=== PATIENT | male | born 1950 | race Caucasian/White ===

== ENCOUNTER 2018-03-04 23:34 | Emergency (ER) | payer BC ==
[2018-03-05] MEDS ORDERED: HYDROmorphone 1 MG/ML Syringe ONE ×2 (00:27→00:53)
[2018-03-05 00:30] LABS: ANION GAP 12.4 mmol/L (5-15)
[2018-03-05] MEDS: Sodium Chloride 0.9% 5 ML Syringe FLUSH PRN ×3 (00:30→02:35)
[2018-03-05] MEDS ORDERED: Iopamidol 612 MG/ML 75 ML Bottle IV ONE (00:35)
[2018-03-05] MEDS ORDERED: Sodium Chloride 0.9% 50 ML IV SCH (00:45)
--- NOTE | 2018-03-05 00:45 | EDM.PDOC ---
ED HPI GENERAL MEDICAL PROBLEM - General Chief Complaint: Abdominal Pain Stated Complaint: SVERE LOWER ABD PAIN Time Seen by Provider: 03/04/18 23:50 Source of Information: Reports: Patient, Family () History Limitations: Reports: No Limitations - History of Present Illness INITIAL COMMENTS - FREE TEXT/NARRATIVE: 67-year-old male presents emergency room with complaints of severe lower abdominal pain. Symptoms began abruptly at approximately 1 hour prior to arrival around 11:00. Pain became very severe in nature. He noticed it across his right lower quadrant as well as tenderness in the left lower quadrant. Reports the pain was sharp and intense. Rating the pain an 8 out of 10. He denies any nausea vomiting. No diarrhea. No constipation. He denies any hematuria or dysuria. He's not complaining of any shortness of breath chest pain , diaphoresis. He notices the pain is severe with any pressure on his abdomen. Onset: Today Onset Date: 03/05/18 Onset Time: 23:00 Duration: Minutes:, Constant Location: Reports: Abdomen Quality: Reports: Stabbing Severity: Severe Improves with: Reports: None Worsens with: Reports: Movement Associated Symptoms: Reports: No Other Symptoms. Denies: Chest Pain, Diaphoresis, Fever/Chills, Nausea/Vomiting - Related Data Allergies Allergy/AdvReac Type Severity Reaction Status Date / Time cephalexin Allergy Hives Verified 03/04/18 23:40 Home Meds: Home Meds Clopidogrel [Plavix] 75 mg PO DAILY 03/04/18 [History] Esomeprazole [NexIUM] 40 mg PO DAILY 03/04/18 [History] atorvaSTATin Calcium [Lipitor] 20 mg PO BEDTIME 03/04/18 [History] Aspirin [Halfprin] 81 mg PO DAILY 03/05/18 [History] Cholecalciferol (Vitamin D3) [Vitamin D3] 1,000 unit PO DAILY 03/05/18 [History] Gluc 2KCl/Chondr/Charlette Hy/Hy Ac [Glucosamine & Chondroitin Cap] 1 cap PO DAILY [History] Turmeric Root Extract [Turmeric] 500 mg PO DAILY 03/05/18 [History] ED ROS GENERAL - Review of Systems Review Of Systems: See Below Constitutional: Denies: Fever, Chills, Diaphoresis HEENT: Denies: Vertigo Respiratory: Denies: Shortness of Breath Cardiovascular: Denies: Chest Pain, Lightheadedness Endocrine: Reports: No Symptoms GI/Abdominal: Reports: Abdominal Pain. Denies: Bloody Stool, Constipation, Diarrhea, Nausea, Vomiting : Denies: Dysuria, Flank Pain, Hematuria, Incontinence Musculoskeletal: Denies: Back Pain Skin: Reports: Change in Color. Denies: Cyanosis, Diaphoresis Psychiatric: Reports: No Symptoms Hematologic/Lymphatic: Reports: Easy Bleeding (plavix) Immunologic: Reports: No Symptoms ED EXAM, GI/ABD - Physical Exam Exam: See Below Exam Limited By: No Limitations General Appearance: Alert, Moderate Distress, Obese (abdominal) Ears: Hearing Grossly Normal Nose: Normal Inspection Throat/Mouth: Normal Inspection, Normal Oropharynx, Normal Voice, No Airway Compromise Neck: Normal Inspection, Supple Respiratory/Chest: No Respiratory Distress, Lungs Clear Cardiovascular: Regular Rate, Rhythm GI/Abdominal Exam: Normal Bowel Sounds, No Distention, Rebound, Tender (RLQ). No: Hernia (Male) Exam: No Hernia. No: Scrotum Tenderness (L), Scrotum Tenderness (R) Back Exam: Normal Inspection Extremities: Normal Inspection, Normal Range of Motion Neurological: Alert, No Motor/Sensory Deficits Psychiatric: Normal Affect, Normal Mood Skin Exam: Warm, Dry, Intact, Normal Color, No Rash Course - Vital Signs Last Recorded V/S: Last Vital Signs Temp 100 F 03/05/18 01:54 Pulse 86 03/05/18 01:54 Resp 20 03/05/18 01:54 BP 150/86 H 03/05/18 01:54 Pulse Ox 94 L 03/05/18 01:54 - Orders/Labs/Meds Orders: Active Orders 24 hr Category Date Time Status Abdomen Pelvis w Cont [CT] Stat Exams 03/05/18 00:00 Taken URINALYSIS W/MICROSCOPIC [UA W/MICROSCOPIC] [URIN] Stat Lab 03/05/18 00:15 Ordered Sodium Chloride 0.9% [Normal Saline] 1,000 ml Med 03/05/18 02:30 Active IV ASDIRECTED Sodium Chloride 0.9% [Normal Saline] 50 ml Med 03/05/18 00:45 Active IV ASDIRECTED Sodium Chloride 0.9% [Syrex Flush] Med 03/04/18 23:40 Active 5 ml FLUSH Q8HR PRN metroNIDAZOLE/Normal Saline [Flagyl 500 MG in NS 100 ML Med 03/05/18 02:16 Active ] 500 mg Premix Bag 1 bag IV ONETIME Saline Lock Insert [OM.PC] Routine Oth 03/04/18 23:40 Ordered Medication Orders Sodium Chloride (Normal Saline) 50 mls @ 200 mls/hr IV ASDIRECTED [facility] Last Admin: 03/05/18 00:53 Dose: 200 mls/hr Metronidazole 500 mg/ Premix 100 mls @ 100 mls/hr IV ONETIME ONE Stop: 03/05/18 03:15 Sodium Chloride (Normal Saline) 1,000 mls @ 150 mls/hr IV ASDIRECTED [facility] Sodium Chloride (Syrex Flush) 5 ml FLUSH Q8HR PRN PRN Reason: Keep Vein Open Labs: Laboratory Tests 03/04/18 03/05/18 03/05/18 Range/Units 23:40 00:00 00:15 WBC 6.8 (5.0-10.0) 10^3/uL RBC 5.26 (4.50-6.00) 10^6/uL Hgb 16.2 (13.0-17.0) g/dL Hct 48.3 (40.0-52.0) % MCV 91.8 (82.0-92.0) fL MCH 30.8 (27.0-31.0) pg MCHC 33.6 (32.0-36.0) g/dL RDW 13.8 (11.5-14.5) % Plt Count 232 (150-300) 10^3/uL MPV 7.7 (7.4-10.4) fL Neut % (Auto) 58.7 (50.0-70.0) % Lymph % (Auto) 30.3 (20.0-40.0) % [place] % (Auto) 8.5 H (2.0-8.0) % Eos % (Auto) 2.1 (1.0-3.0) % Baso % (Auto) 0.4 (0.0-1.0) % Neut # (Auto) 4.0 (2.5-7.0) 10^3/uL Lymph # (Auto) 2.1 (1.0-4.0) 10^3/uL [place] # (Auto) 0.6 (0.1-0.8) 10^3/uL Eos # (Auto) 0.1 (0.1-0.3) 10^3/uL Baso # (Auto) 0.0 (0.0-0.1) 10^3/uL Sodium 139 (136-145) mmol/L Potassium 4.5 (3.3-5.3) mmol/L Chloride 103 (98-115) mmol/L Carbon Dioxide 28.1 (21.0-32.0) mmol/L Anion Gap 12.4 (5-15) mmol/L BUN 17 (6-25) mg/dL Creatinine 1.22 H (0.51-1.17) mg/dL Est Cr Clr Drug Dosing 62.72 mL/min Estimated GFR (MDRD) 59 mL/min Glucose 137 mg/dL Calcium 9.2 (8.7-10.3) mg/dL Specimen Type Urincc Urine Color Yellow (YELLOW) Urine Appearance Clear (CLEAR) Urine pH 6.5 (5.0-9.0) Ur Specific [place] 1.020 (1.005-1.030) Urine Protein Negative (NEGATIVE) mg/dL Urine Glucose (UA) Negative (NEGATIVE) mg/dL Urine Ketones Negative (NEGATIVE) mg/dL Urine Occult Blood Negative (NEGATIVE) Urine Nitrite Negative (NEGATIVE) Urine Bilirubin Negative (NEGATIVE) Urine Urobilinogen 1.0 (0.2-1.0) E.U./dL Ur Leukocyte Esterase Negative (NEGATIVE) Urine RBC Not seen /HPF Urine WBC 0-5 /HPF Ur Epithelial Cells Rare /LPF Urine Bacteria Not seen (NONE TO FEW) /HPF Urine Mucus Moderate H (NEGATIVE) /LPF Meds: Medications Generic Name Dose Route Start Last Admin Trade Name Freq PRN Reason Stop Dose Admin Sodium Chloride 50 mls @ 200 mls/hr 03/05/18 00:45 03/05/18 00:53 Normal Saline IV 200 mls/hr ASDIRECTED PEPPER Administration Metronidazole 500 mg/ Premix 100 mls @ 100 mls/hr 03/05/18 02:16 IV 03/05/18 03:15 ONETIME ONE Sodium Chloride 1,000 mls @ 150 mls/hr 03/05/18 02:30 Normal Saline IV ASDIRECTED PEPPER Sodium Chloride 5 ml 03/04/18 23:40 Syrex Flush FLUSH Q8HR PRN Keep Vein Open Discontinued Medications Generic Name Dose Route Start Last Admin Trade Name Mendoza PRN Reason Stop Dose Admin Hydromorphone HCl Confirm 03/05/18 00:27 03/05/18 00:56 Dilaudid Administered 03/05/18 00:28 1 mg Dose Administration 1 mg .ROUTE .STK-MED ONE Hydromorphone HCl Confirm 03/05/18 00:53 03/05/18 00:28 Dilaudid Administered 03/05/18 00:54 1 mg Dose Administration 1 mg .ROUTE .STK-MED ONE Sodium Chloride Confirm 03/05/18 02:04 Normal Saline Administered 03/05/18 02:05 Dose 1,000 mls @ as directed .ROUTE .STK-MED ONE Iopamidol 75 ml 03/05/18 00:35 03/05/18 00:53 Isovue-300 (61%) IV 03/05/18 00:36 75 ml ONETIME ONE Administration Metoclopramide HCl 5 mg 03/05/18 02:17 Reglan IVPUSH 03/05/18 02:18 ONETIME ONE Ondansetron HCl 8 mg 03/05/18 02:17 Zofran IVPUSH 03/05/18 02:18 ONETIME ONE - Re-Assessments/Exams Free Text/Narrative Re-Assessment/Exam: 03/05/18 02:19 Patient reports that his pain is settled down considerably with a total of 2 mg of hydromorphone. Patient just experienced episode of emesis. Zofran was ordered. We'll begin IV fluids. Departure - Departure Time of Disposition: 02:50 Disposition: DC/Tfer to [facility] Condition: Fair Clinical Impression: Diverticulitis of colon with perforation Qualifiers: Diverticulitis bleeding: unspecified bleeding status Qualified Code(s): K57.20 - Diverticulitis of large intestine with perforation and abscess without bleeding - Discharge Information Referrals: PCP,Unknown [Primary Care Provider] - Forms: ED Department Discharge - My Orders Last 24 Hours: My Active Orders 03/04/18 23:40 Sodium Chloride 0.9% [Syrex Flush] 5 ml FLUSH Q8HR PRN Saline Lock Insert [OM.PC] Routine 03/05/18 00:00 Abdomen Pelvis w Cont [CT] Stat 03/05/18 00:15 URINALYSIS W/MICROSCOPIC [UA W/MICROSCOPIC] [URIN] Stat 03/05/18 00:45 Sodium Chloride 0.9% [Normal Saline] 50 ml IV ASDIRECTED 03/05/18 02:16 metroNIDAZOLE/Normal Saline [Flagyl 500 MG in NS 100 ML] 500 mg Premix Bag 1 bag IV ONETIME 03/05/18 02:30 Sodium Chloride 0.9% [Normal Saline] 1,000 ml IV ASDIRECTED - Assessment/Plan Last 24 Hours: My Active Orders 03/04/18 23:40 Sodium Chloride 0.9% [Syrex Flush] 5 ml FLUSH Q8HR PRN Saline Lock Insert [OM.PC] Routine 03/05/18 00:00 Abdomen Pelvis w Cont [CT] Stat 03/05/18 00:15 URINALYSIS W/MICROSCOPIC [UA W/MICROSCOPIC] [URIN] Stat 03/05/18 00:45 Sodium Chloride 0.9% [Normal Saline] 50 ml IV ASDIRECTED 03/05/18 02:16 metroNIDAZOLE/Normal Saline [Flagyl 500 MG in NS 100 ML] 500 mg Premix Bag 1 bag IV ONETIME 03/05/18 02:30 Sodium Chloride 0.9% [Normal Saline] 1,000 ml IV ASDIRECTED Assessment:: Perforated sigmoid colonic diverticulitis with extraluminal gas and free intra- peritoneal air Plan: Surgical consultation Patient will be transferred to [facility]. Patient remain nothing by mouth.
[2018-03-05] MEDS ORDERED: Sodium Chloride 0.9% 1,000 ML ONE ×2 (02:04→02:40)
[2018-03-05] MEDS ORDERED: metroNIDAZOLE/Normal Saline 500 MG in Premix Bag 1 BAG IV ONE (02:16)
[2018-03-05] MEDS ORDERED: Metoclopramide 10 MG/2 ML SDV IVPUSH ONE (02:17)
[2018-03-05] MEDS ORDERED: Ondansetron 4 MG/2 ML SDV IVPUSH ONE (02:17)
[2018-03-05] MEDS ORDERED: Sodium Chloride 0.9% 1,000 ML IV SCH (02:30)
[2018-03-05] MEDS ORDERED: Ondansetron 4 MG/2 ML SDV ONE (02:32)
[2018-03-05] MEDS ORDERED: Acetaminophen 500 MG Tab ONE (02:40)
[2018-03-05] MEDS ORDERED: Acetaminophen 500 MG Tab PO ONE (02:40)
[2018-03-06] MEDS ORDERED: HYDROmorphone 1 MG/ML Syringe IVPUSH ONE ×2
== END 2018-03-05 02:55 | disposition critical access hospital (66) ==
LOC: KA.ED 23:34
DX: K57.20 Diverticulitis of large intestine with perforation and abscess without bleeding (principal); Z88.1 Allergy status to other antibiotic agents; Z79.899 Other long term (current) drug therapy; Z79.82 Long term (current) use of aspirin
CPT/HCPCS: 36415; 74177; 80048; 81001; 85025; 96361; 96365; 96375; 99285; A9270; J1170; J2405; J3490; J7030; J7050; Q9967

== ENCOUNTER 2020-05-15 12:39 | Observation (INO) | payer OTHER, BC, MEDICARE ==
[2020-05-15] MEDS ORDERED: Sodium Chloride 0.9% 10 ML Syringe FLUSH PRN ×2 (12:45→14:24)
[2020-05-15] MEDS ORDERED: Aspirin 81 MG Tab.Chew PO ONE (12:45)
[2020-05-15] MEDS ORDERED: Nitroglycerin 2% Oint 1 GM UD Packet TOP ONE (12:45)
--- NOTE | 2020-05-15 12:46 | EDM.PDOC ---
ED HPI GENERAL MEDICAL PROBLEM - General Chief Complaint: Cardiovascular Problem Stated Complaint: CHEST PAIN Time Seen by Provider: 05/15/20 12:40 Source of Information: Reports: Patient History Limitations: Reports: No Limitations - History of Present Illness INITIAL COMMENTS - FREE TEXT/NARRATIVE: 70 YO WM PRESENTS TO ER BY EMS AFTER EVALUATION AT [facility] FOR CHEST PA IN. PT REPORTS TODAY HE WAS SITTING ON HIS COUCH AND DEVELOPED LEFT SIDED CHEST PAIN WITH RADIATION TO LEFT SHOULDER. PT REPORTS PAIN WAS INTERMITTENT AND WAX/WANED FOR APPROXIMATELY 1 HOUR PRIOR TO EVALUATION AT CLINIC. PT REPORTS HISTORY OF MULTIPLE CARDIAC STENTS WITH THE LAST STENT BEING PLACED 10 MONTHS AGO. PT DENIES SHORTNESS OF BREATH, DIAPHORESIS, NAUSEA/VOMITING. PT REPORTS MILD LIGHTHEADEDNESS WHEN SYMPTOMS BEGAN. PT REPORTS PAIN HAS RESOLVED AFTER NITRO. PT DENIES FEVER/CHILLS, NO COUGH/CONGESTION AND NO KNOWN SICK/COVID CONTACTS. Onset: Today Duration: Hour(s): (1) Location: Reports: Chest Quality: Reports: Ache Severity: Mild Improves with: Reports: None Worsens with: Reports: None Associated Symptoms: Reports: No Other Symptoms, Chest Pain. Denies: Cough, cough w sputum, Fever/Chills, Nausea/Vomiting, Shortness of Breath, Syncope - Related Data Allergies Allergy/AdvReac Type Severity Reaction Status Date / Time cephalexin Allergy Hives Verified 05/15/20 12:51 Home Meds: Home Meds Clopidogrel [Plavix] 75 mg PO DAILY 03/04/18 [History] atorvaSTATin Calcium [Lipitor] 40 mg PO DAILY 03/04/18 [History] Aspirin [Halfprin] 81 mg PO DAILY 03/05/18 [History] Cholecalciferol (Vitamin D3) [Vitamin D3] 1,000 unit PO DAILY 03/05/18 [History] Glucosam/Chondr/Collagn/Hyalur [Glucosamine & Chondroitin Cap] 1 cap PO DAILY 03/05/18 [History] Amiodarone [Cordarone] 200 mg PO DAILY 05/15/20 [History] Clobetasol [Clobetasol Propionate 0.05% Cream] 1 applic TOP ASDIRECTED PRN 05/15/20 [History] Halobetasol [Ultravate] 1 applic TOP ASDIRECTED PRN 05/15/20 [History] Isosorbide Mononitrate [Imdur] 60 mg PO DAILY 05/15/20 [History] Metoprolol Succinate [Toprol XL 50mg] 50 mg PO DAILY 05/15/20 [History] Nitroglycerin [Nitrostat] 0.4 mg PO ASDIRECTED PRN 05/15/20 [History] Pantoprazole [ProTONIX] 40 mg PO DAILY 05/15/20 [History] lisinopriL [Lisinopril] 5 mg PO DAILY 05/15/20 [History] metFORMIN HCl [Metformin HCl ER] 500 mg PO DAILY 05/15/20 [History] Past Medical History HEENT History: Reports: Other (See Below) Other HEENT History: glasses Cardiovascular History: Reports: Stents, Other (See Below) Other Cardiovascular History: [id number] Gastrointestinal History: Reports: GERD Endocrine/Metabolic History: Reports: Obesity/BMI 30+ Dermatologic History: Reports: Eczema, Psoriasis - Infectious Disease History Infectious Disease History: Reports: Chicken Pox - Past Surgical History HEENT Surgical History: Reports: None Cardiovascular Surgical History: Reports: Coronary Artery Stent GI Surgical History: Reports: Other (See Below) Social & Family History - Caffeine Use Caffeine Use: Reports: Coffee, Soda ED ROS GENERAL - Review of Systems Review Of Systems: See Below Constitutional: Reports: No Symptoms HEENT: Reports: No Symptoms Respiratory: Reports: No Symptoms Cardiovascular: Reports: Chest Pain, Lightheadedness Endocrine: Reports: No Symptoms GI/Abdominal: Reports: No Symptoms : Reports: No Symptoms Musculoskeletal: Reports: No Symptoms Skin: Reports: No Symptoms Neurological: Reports: No Symptoms Psychiatric: Reports: No Symptoms Hematologic/Lymphatic: Reports: No Symptoms Immunologic: Reports: No Symptoms ED EXAM, GENERAL - Physical Exam Exam: See Below Exam Limited By: No Limitations General Appearance: Alert, WD/WN, No Apparent Distress Eye Exam: Bilateral Eye: EOMI, PERRL Head: Atraumatic, Normocephalic Neck: Normal Inspection, Supple, Non-Tender, Full Range of Motion Respiratory/Chest: No Respiratory Distress, Lungs Clear, Normal Breath Sounds, No Accessory Muscle Use, Chest Non-Tender Cardiovascular: Normal Peripheral Pulses, Regular Rate, Rhythm, No Edema, No Gallop, No JVD, No Murmur, No Rub GI/Abdominal: Normal Bowel Sounds, Soft, Non-Tender, No Organomegaly, No Distention, No Abnormal Bruit, No Mass Back Exam: Normal Inspection, Full Range of Motion, NT Extremities: Normal Inspection, Normal Range of Motion, Non-Tender, Normal Capillary Refill, No Pedal Edema Neurological: Alert, Oriented, CN II-XII Intact, Normal Cognition, Normal Gait, Normal Reflexes, No Motor/Sensory Deficits Psychiatric: Normal Affect, Normal Mood Skin Exam: Warm, Dry, Intact, Normal Color, No Rash Lymphatic: No Adenopathy EKG INTERPRETATION EKG Date: 05/15/20 Time: 12:53 Rhythm: NSR Rate (Beats/Min): 45 Zanoni: Normal P-Wave: Present QRS: Normal ST-T: Normal QT: Normal Comparison: No Change Course - Vital Signs Last Recorded V/S: Last Vital Signs Temp 36.5 C 05/15/20 13:01 Pulse 48 L 05/15/20 13:01 Resp 14 05/15/20 13:01 BP 151/87 H 05/15/20 13:01 Pulse Ox 96 05/15/20 13:01 - Orders/Labs/Meds Orders: Active Orders 24 hr Category Date Time Status EKG Documentation Completion [RC] ASDIRECTED Care 05/15/20 12:45 Active Peripheral IV Care [RC] . DIRECTED Care 05/15/20 12:45 Active CORONAVIRUS COVID-19 RAPID [MOLEC] Stat Lab 05/15/20 14:17 Ordered Sodium Chloride 0.9% [Saline Flush] Med 05/15/20 12:45 Active 10 ml FLUSH Q8HR PRN Peripheral IV Insertion Adult [OM.PC] Routine Oth 05/15/20 12:45 Ordered EKG 12 Lead [EK] Stat Ther 05/15/20 12:45 Ordered Medication Orders Sodium Chloride (Saline Flush) 10 ml FLUSH Q8HR PRN PRN Reason: keep vein open Labs: Laboratory Tests 05/15/20 05/15/20 Range/Units 12:45 12:50 WBC 6.89 (5.00-10.00) 10^3/uL RBC 4.74 (4.50-6.00) 10^6/uL Hgb 14.9 (13.0-17.0) g/dL Hct 43.9 (40.0-52.0) % MCV 92.6 H (82.0-92.0) fL MCH 31.4 H (27.0-31.0) pg MCHC 33.9 (32.0-36.0) g/dL RDW 12.4 (11.5-14.5) % Plt Count 198 (150-400) 10^3/uL MPV 10.5 H (7.4-10.4) fL Immature Gran % (Auto) 0.3 (0.0-5.0) % Neut % (Auto) 67.6 (50.0-70.0) % Lymph % (Auto) 17.6 L (20.0-40.0) % [place] % (Auto) 11.5 H (2.0-8.0) % Eos % (Auto) 2.6 (1.0-3.0) % Baso % (Auto) 0.4 (0.0-1.0) % Neut # (Auto) 4.66 (2.50-7.00) 10^3/uL Lymph # (Auto) 1.21 (1.00-4.00) 10^3/uL [place] # (Auto) 0.79 (0.10-0.80) 10^3/uL Eos # (Auto) 0.18 (0.10-0.30) 10^3/uL Baso # (Auto) 0.03 (0.00-0.10) 10^3/uL Immature Gran # (Auto) 0.02 (0.00-0.50) 10^3/uL Sodium 138 (136-145) mmol/L Potassium 5.1 (3.3-5.3) mmol/L Chloride 103 (98-115) mmol/L Carbon Dioxide 24.8 (21.0-32.0) mmol/L Anion Gap 15.3 H (5-15) mmol/L BUN 14 (6-25) mg/dL Creatinine 0.96 (0.51-1.17) mg/dL Est Cr Clr Drug Dosing 76.34 mL/min Estimated GFR (MDRD) > 60 mL/min Glucose 168 H (75 - 99) mg/dL Calcium 8.5 L (8.7-10.3) mg/dL Total Bilirubin 0.8 (0.2-1.0) mg/dL AST 37 (15-37) U/L ALT 29 (12-78) U/L Alkaline Phosphatase 72 (46-116) IU/L Creatine Kinase 105 (26-276) U/L CK-MB (CK-2) 1.00 (0.00-4.30) ng/mL Troponin I 0.05 (0.00-0.070) ng/mL B-Natriuretic Peptide 65 (0-100) pg/mL Total Protein 6.4 (6.4-8.2) g/dL Albumin 3.50 (3.00-4.80) g/dL Meds: Medications Generic Name Dose Route Start Last Admin Trade Name Freq PRN Reason Stop Dose Admin Sodium Chloride 10 ml 05/15/20 12:45 Saline Flush FLUSH Q8HR PRN keep vein open Discontinued Medications Generic Name Dose Route Start Last Admin Trade Name Freq PRN Reason Stop Dose Admin Aspirin 324 mg 05/15/20 12:45 05/15/20 12:52 Aspirin PO 05/15/20 12:46 324 mg ONETIME ONE Administration Nitroglycerin 1 gm 05/15/20 12:45 05/15/20 12:53 Nitro-Bid 2% TOP 05/15/20 12:46 1 gm ONETIME ONE Administration - Radiology Interpretation Free Text/Narrative:: CXR- ATELECTASIS VS BIBASILAR INFILTRATES Departure - Departure Time of Disposition: 14:22 Disposition: Refer to Observation Condition: Fair Clinical Impression: Chest pain Qualifiers: Ischemic chest pain type: stable angina pectoris Referrals: Charity Yeh, CHOIR SINGER [Nurse Practitioner] - Forms: ED Department Discharge Sepsis Event Note (ED) - Focused Exam Vital Signs: Vital Signs Temp Pulse Resp BP Pulse Ox 05/15/20 13:01 36.5 C 48 L 14 151/87 H 96 - My Orders Last 24 Hours: My Active Orders 05/15/20 12:45 EKG Documentation Completion [RC] ASDIRECTED Peripheral IV Care [RC] . DIRECTED Sodium Chloride 0.9% [Saline Flush] 10 ml FLUSH Q8HR PRN Peripheral IV Insertion Adult [OM.PC] Routine EKG 12 Lead [EK] Stat 05/15/20 14:17 CORONAVIRUS COVID-19 RAPID [MOLEC] Stat - Assessment/Plan Last 24 Hours: My Active Orders 05/15/20 12:45 EKG Documentation Completion [RC] ASDIRECTED Peripheral IV Care [RC] . DIRECTED Sodium Chloride 0.9% [Saline Flush] 10 ml FLUSH Q8HR PRN Peripheral IV Insertion Adult [OM.PC] Routine EKG 12 Lead [EK] Stat 05/15/20 14:17 CORONAVIRUS COVID-19 RAPID [MOLEC] Stat Assessment:: 1. CHEST PAIN Plan: 1. ADMIT TO MEDICINE- CHARITY DIOR- ORDERS PLACED PER CHARITY YEH @5100 2. ASA/NITRO 3. SUPPORTIVE CARE 4. TROP I Q4 X 3
--- NOTE | 2020-05-15 13:24 | CR ---
[id number] RAD/RAD Chest PA or AP 1V EXAM: FRONTAL CHEST INDICATION: PAIN. COMPARISON: None. DISCUSSION: Mild bibasilar infiltrates and/or atelectasis. Normal heart size. No effusions. IMPRESSION: 1. Mild bibasilar atelectasis and/or infiltrates. Ritchie Parada MD 05/15/20 1610 Thank you for allowing us to participate in the care of your patient.
[2020-05-15 13:42] LABS: ANION GAP 15.3 mmol/L (5-15); CHLORIDE,CL 103 mmol/L (98-115); SODIUM,NA 138 mmol/L (136-145)
--- NOTE | 2020-05-15 18:59 | PCM.HP.2 ---
H&P History of Present Illness - General Date of Service: 05/15/20 Admit Problem/Dx: Admission Diagnosis/Problem Admission Diagnosis/Problem Chest pain Source of Information: Patient History Limitations: Reports: No Limitations - History of Present Illness Initial Comments - Free Text/Narative: 70 year old male with known CAD and previous stent placement, admitted observation from the ED with chest pain rule out [place]. He presented to the [facility] at noon with chest pain that had been present for approximately an hour and was sharp and stabbing, feeling like when he had previous stent placement. He was sitting on the couch when the pain started. Associated light headedness. No nausea/vomiting, diaphoresis, or shortness of breath. EKG was completed, one dose of nitro 0.4mg SL given with relief of chest pain and sent to the [facility] ED for further evaluation, management and treatment. - Related Data Allergies/Adverse Reactions: Allergies Allergy/AdvReac Type Severity Reaction Status Date / Time cephalexin Allergy Hives Verified 05/15/20 12:51 Home Medications: Home Meds Clopidogrel [Plavix] 75 mg PO DAILY 03/04/18 [History] atorvaSTATin Calcium [Lipitor] 40 mg PO DAILY 03/04/18 [History] Aspirin [Halfprin] 81 mg PO DAILY 03/05/18 [History] Cholecalciferol (Vitamin D3) [Vitamin D3] 1,000 unit PO DAILY 03/05/18 [History] Glucosam/Chondr/Collagn/Hyalur [Glucosamine & Chondroitin Cap] 1 cap PO DAILY 03/05/18 [History] Amiodarone [Cordarone] 200 mg PO DAILY 05/15/20 [History] Clobetasol [Clobetasol Propionate 0.05% Cream] 1 applic TOP ASDIRECTED PRN 05/15/20 [History] Halobetasol [Ultravate] 1 applic TOP ASDIRECTED PRN 05/15/20 [History] Isosorbide Mononitrate [Imdur] 60 mg PO DAILY 05/15/20 [History] Metoprolol Succinate [Toprol XL 50mg] 50 mg PO DAILY 05/15/20 [History] Nitroglycerin [Nitrostat] 0.4 mg PO ASDIRECTED PRN 05/15/20 [History] Pantoprazole [ProTONIX] 40 mg PO DAILY 05/15/20 [History] lisinopriL [Lisinopril] 5 mg PO DAILY 05/15/20 [History] metFORMIN HCl [Metformin HCl ER] 500 mg PO DAILY 05/15/20 [History] Past Medical History HEENT History: Reports: Other (See Below) Other HEENT History: glasses Cardiovascular History: Reports: Stents, Other (See Below) Other Cardiovascular History: [id number] Gastrointestinal History: Reports: GERD Endocrine/Metabolic History: Reports: Obesity/BMI 30+ Dermatologic History: Reports: Eczema, Psoriasis - Infectious Disease History Infectious Disease History: Reports: Chicken Pox - Past Surgical History Head Surgeries/Procedures: Reports: None HEENT Surgical History: Reports: None Cardiovascular Surgical History: Reports: Coronary Artery Stent GI Surgical History: Reports: Other (See Below) Social & Family History - Family History Cardiac: Reports: [place] Endocrine/Metabolic: Reports: IDDM - Tobacco Use Smoking Status *Q: Former Smoker Used Tobacco, but Quit: Yes Month/Year Tobacco Last Used: 25 Second Hand Smoke Exposure: No - Caffeine Use Caffeine Use: Reports: Coffee, Soda - Recreational Drug Use Recreational Drug Use: No H&P Review of Systems - Review of Systems: Review Of Systems: See Below Free Text/Narrative: 70 year old male sitting up in chair. No acute distress. No concerns or complaint. Denies chest pain. General: Denies: Fever, Chills, Weakness, Fatigue, Diaphoresis HEENT: Reports: Glasses. Denies: Sinus Congestion, Sore Throat Pulmonary: Denies: Shortness of Breath, Wheezing, Cough Cardiovascular: Denies: Chest Pain, Palpitations, Edema Gastrointestinal: Denies: Abdominal Pain, Constipation, Diarrhea, Nausea, Vomiting Genitourinary: Denies: Dysuria, Burning, Urgency, Hematuria Musculoskeletal: Denies: Neck Pain, Back Pain, Leg Pain Skin: Denies: Cyanosis, Pallor, Bruising Psychiatric: Denies: Confusion, Anxiety, Agitation Neurological: Denies: Confusion, Dizziness, Headache Exam - Exam Exam: See Below - Vital Signs Vital Signs: Last Vital Signs Temp 36.6 C 05/15/20 18:01 Pulse 54 L 05/15/20 18:01 Resp 16 05/15/20 18:01 BP 139/80 05/15/20 18:01 Pulse Ox 95 05/15/20 18:01 Weight: 104.326 kg - Exam Physical Exam Comments:: GENERAL: Well-appearing adult in no acute distress. HEENT: Normocephalic, atraumatic. Conjunctiva clear. Nares patent without discharge. Mucous membranes moist, posterior pharynx unremarkable. NECK: Supple, no masses. CV: Bradycardic rate and regular rhythm, no murmurs, rubs, or gallops. 2+ radial pulses. PULMONARY: Normal effort, clear to auscultation bilaterally, no wheezes, rales, or rhonchi. ABDOMEN: Positive bowel sounds, soft, nontender, nondistended. EXTREMITIES: No edema, cyanosis, or clubbing. MUSCULOSKELETAL: Moves all extremities well. NEUROLOGICAL: No obvious deficits. DERMATOLOGIC: No rashes or suspicious lesions in exposed areas. PSYCHIATRIC: Alert, interactive, appropriate affect. - Patient Data Lab Results Last 24 hrs: Laboratory Results - last 24 hr 05/15/20 05/15/20 05/15/20 Range/Units 12:45 12:50 14:20 WBC 6.89 (5.00-10.00) 10^3/uL RBC 4.74 (4.50-6.00) 10^6/uL Hgb 14.9 (13.0-17.0) g/dL Hct 43.9 (40.0-52.0) % MCV 92.6 H (82.0-92.0) fL MCH 31.4 H (27.0-31.0) pg MCHC 33.9 (32.0-36.0) g/dL RDW 12.4 (11.5-14.5) % Plt Count 198 (150-400) 10^3/uL MPV 10.5 H (7.4-10.4) fL Immature Gran % (Auto) 0.3 (0.0-5.0) % Neut % (Auto) 67.6 (50.0-70.0) % Lymph % (Auto) 17.6 L (20.0-40.0) % Wise % (Auto) 11.5 H (2.0-8.0) % Eos % (Auto) 2.6 (1.0-3.0) % Baso % (Auto) 0.4 (0.0-1.0) % Neut # (Auto) 4.66 (2.50-7.00) 10^3/uL Lymph # (Auto) 1.21 (1.00-4.00) 10^3/uL Wise # (Auto) 0.79 (0.10-0.80) 10^3/uL Eos # (Auto) 0.18 (0.10-0.30) 10^3/uL Baso # (Auto) 0.03 (0.00-0.10) 10^3/uL Immature Gran # (Auto) 0.02 (0.00-0.50) 10^3/uL Sodium 138 (136-145) mmol/L Potassium 5.1 (3.3-5.3) mmol/L Chloride 103 (98-115) mmol/L Carbon Dioxide 24.8 (21.0-32.0) mmol/L Anion Gap 15.3 H (5-15) mmol/L BUN 14 (6-25) mg/dL Creatinine 0.96 (0.51-1.17) mg/dL Est Cr Clr Drug Dosing 76.34 mL/min Estimated GFR (MDRD) > 60 mL/min Glucose 168 H (75 - 99) mg/dL Calcium 8.5 L (8.7-10.3) mg/dL Total Bilirubin 0.8 (0.2-1.0) mg/dL AST 37 (15-37) U/L ALT 29 (12-78) U/L Alkaline Phosphatase 72 (46-116) IU/L Creatine Kinase 105 (26-276) U/L CK-MB (CK-2) 1.00 (0.00-4.30) ng/mL Troponin I 0.05 (0.00-0.070) ng/mL B-Natriuretic Peptide 65 (0-100) pg/mL Total Protein 6.4 (6.4-8.2) g/dL Albumin 3.50 (3.00-4.80) g/dL SARS CoV-2 RNA Rapid ZULEMA Negative (NEGATIVE) 05/15/20 Range/Units 14:55 WBC (5.00-10.00) 10^3/uL RBC (4.50-6.00) 10^6/uL Hgb (13.0-17.0) g/dL Hct (40.0-52.0) % MCV (82.0-92.0) fL MCH (27.0-31.0) pg MCHC (32.0-36.0) g/dL RDW (11.5-14.5) % Plt Count (150-400) 10^3/uL MPV (7.4-10.4) fL Immature Gran % (Auto) (0.0-5.0) % Neut % (Auto) (50.0-70.0) % Lymph % (Auto) (20.0-40.0) % Wise % (Auto) (2.0-8.0) % Eos % (Auto) (1.0-3.0) % Baso % (Auto) (0.0-1.0) % Neut # (Auto) (2.50-7.00) 10^3/uL Lymph # (Auto) (1.00-4.00) 10^3/uL Wise # (Auto) (0.10-0.80) 10^3/uL Eos # (Auto) (0.10-0.30) 10^3/uL Baso # (Auto) (0.00-0.10) 10^3/uL Immature Gran # (Auto) (0.00-0.50) 10^3/uL Sodium (136-145) mmol/L Potassium (3.3-5.3) mmol/L Chloride (98-115) mmol/L Carbon Dioxide (21.0-32.0) mmol/L Anion Gap (5-15) mmol/L BUN (6-25) mg/dL Creatinine (0.51-1.17) mg/dL Est Cr Clr Drug Dosing mL/min Estimated GFR (MDRD) mL/min Glucose (75 - 99) mg/dL Calcium (8.7-10.3) mg/dL Total Bilirubin (0.2-1.0) mg/dL AST (15-37) U/L ALT (12-78) U/L Alkaline Phosphatase (46-116) IU/L Creatine Kinase (26-276) U/L CK-MB (CK-2) (0.00-4.30) ng/mL Troponin I < 0.04 (0.00-0.070) ng/mL B-Natriuretic Peptide (0-100) pg/mL Total Protein (6.4-8.2) g/dL Albumin (3.00-4.80) g/dL SARS CoV-2 RNA Rapid ZULEMA (NEGATIVE) Result Diagrams: 05/15/20 12:50 05/15/20 12:45 Sepsis Event Note - Evaluation Sepsis Screening Result: No Definite Risk - Focused Exam Vital Signs: Vital Signs Temp Pulse Pulse Resp BP Pulse Ox 05/15/20 18:01 36.6 C 54 L 16 139/80 95 05/15/20 15:50 36.7 C 46 L 16 143/78 H 97 05/15/20 15:00 46 L 14 129/95 H 95 05/15/20 14:30 46 L 12 124/78 94 L 05/15/20 14:00 47 L 19 122/82 94 L 05/15/20 13:30 49 L 9 L 147/81 H 94 L 05/15/20 13:01 36.5 C 48 L 14 151/87 H 96 05/15/20 13:00 48 L 15 127/73 94 L Problem List Initiated/Reviewed/Updated: Yes Orders Last 24hrs: Active Orders 24 hr Category Date Time Status Patient Status [ADT] Routine ADT 05/15/20 14:24 Active Cardiac Monitoring [RC] 0300,0700,1100,1500,1900,2300 Care 05/15/20 14:25 Active Oxygen Therapy [RC] PRN Care 05/15/20 14:24 Active Up With Assistance [RC] ASDIRECTED Care 05/15/20 14:24 Active VTE/DVT Education [RC] PER UNIT ROUTINE Care 05/15/20 14:24 Active Vital Signs [RC] 0300,0700,1100,1500,1900,2300 Care 05/15/20 14:24 Active 2 Gram Sodium Diet [DIET] Diet 05/15/20 Dinner Active A1C [GLYCOSYLATED HEMOGLOBIN,HGBA1C] [CHEM] AM Lab 05/16/20 05:11 Ordered BASIC METABOLIC PANEL,BMP [CHEM] AM Lab 05/16/20 05:11 Ordered CBC WITH AUTO DIFF [HEME] AM Lab 05/16/20 05:11 Ordered TROPONIN I [CHEM] AM Lab 05/16/20 05:11 Ordered TROPONIN I [CHEM] Stat Lab 05/15/20 21:00 Ordered TSH ULTRASENSITIVE [CHEM] AM Lab 05/16/20 05:11 Ordered Aspirin [Ecotrin] Med 10/01/20 09:00 Active 325 mg PO DAILY Nitroglycerin [Nitro-Bid 2%] Med 05/15/20 19:00 Active 1 gm TOP Q6H Sodium Chloride 0.9% [Saline Flush] Med 05/15/20 14:24 Active 10 ml FLUSH Q8HR PRN Peripheral IV Insertion Adult [OM.PC] Routine Oth 05/15/20 12:45 Ordered Peripheral IV Insertion Adult [OM.PC] Routine Oth 05/15/20 14:24 Ordered Resuscitation Status Routine Resus Stat 05/15/20 14:24 Ordered EKG 12 Lead [EK] Stat Ther 05/15/20 12:45 Stop Req Medication Orders Aspirin (Ecotrin) 325 mg PO DAILY PEPPER Nitroglycerin (Nitro-Bid 2%) 1 gm TOP Q6H PEPPER Last Admin: 05/15/20 18:38 Dose: 1 gm Documented by: TOÑA Sodium Chloride (Saline Flush) 10 ml FLUSH Q8HR PRN PRN Reason: keep vein open Assessment/Plan Comment:: HPI summary: 70 year old male with known CAD and previous stent placement, admitted observation from the ED with chest pain rule out [place]. He presented to the [facility] at noon with chest pain that had been present for approximately an hour and was sharp and stabbing, feeling like when he had previous stent placement. He was sitting on the couch when the pain started. Associated light headedness. No nausea/vomiting, diaphoresis, or shortness of breath. EKG was completed, one dose of nitro 0.4mg SL given with relief of ches t pain and sent to the [facility] ED for further evaluation, management and treatment. ED course: -VS: T36.5C, pulse 48, resp 14, BP 151/87, O2 sat 96%/RA -EKG: SB, no ST change -Lab: MCV 92.6, MCH 31.4, MPV 10.5, Lymph% 17.6, mono% 11.5, anion gap 15.3, glucose 168, Ca 8.5, Trop 0.05, BNP 65, COVID negative, remainder of lab unremarkable -ASA 324mg oral given x 1 -NTG paste 1gm top applied -CXR: mild bibasilar atelectasis and/or infiltrates without clinical evidence of infection -Admit observation Sull[facility] service to trend trop and monitor Hospital course: 05/15/2020: Patient reports resolution of chest pain and offers no concern. States he is "feeling good". Repeat troponin <0.04. Telemetry shows sinus patricia. Nursing offers no concerns. Hospitalization problems and plan: # Chest pain, R/O [place] - Repeat troponin at 9pm and in AM - Telemetry - BMP, CBC, A1c, TSH in the AM - Decrease metoprolol succ to 25mg orally once daily Chronic, stable conditions: #CAD, with previous stent placement; continue isosorbide, lisinopril, continue clopidogrel and ASA -DESx2 LAD 2016 -DESx2 RCA 06/2019 -DESx1 to OM1 in 07/2019 #HLD; continue atorvastatin #NSVT; continue amiodarone #DMT2; hold metformin while in hospital #Obesity #Diverticular disease #GERD; continue pantoprazole Hospitalization details: # FEN: SL in place, taking oral fluids; electrolytes stable; 2gm Na diet # PPX: on DAPT with clopidogrel and ASA # Code status: Full code # Emergency contact: , Audrey # Disposition: Anticipate discharge home in AM if troponin remains stable - Mortality Measure Prognosis:: Good
[2020-05-15] MEDS ORDERED: Nitroglycerin 2% Oint 1 GM UD Packet TOP SCH (19:00)
[2020-05-15] MEDS ORDERED: Nitroglycerin 0.4 MG Tab.SL SL PRN (19:14)
[2020-05-16] MEDS ORDERED: Nitroglycerin 0.4 MG Tab.SL SL PRN (00:26)
[2020-05-16] MEDS ORDERED: Lidocaine 2% 100 MG/5 ML Syringe IVPUSH PRN (05:43)
[2020-05-16] MEDS ORDERED: Atropine 0.1 MG/ML 10 ML Syringe IVPUSH PRN ×2 (05:43→05:47)
[2020-05-16] MEDS ORDERED: EPINEPHrine 1:10,000 1 MG/10 ML Syringe IVPUSH PRN (05:43)
[2020-05-16] MEDS ORDERED: Pantoprazole 40 MG Tab.CR PO SCH (07:30)
[2020-05-16 08:18] LABS: ANION GAP 9.8 mmol/L (5-15); CHLORIDE,CL 105 mmol/L (98-115); SODIUM,NA 139 mmol/L (136-145)
[2020-05-16] MEDS ORDERED: Clopidogrel 75 MG Tab PO SCH (09:00)
[2020-05-16] MEDS ORDERED: atorvaSTATin 40 MG Tab PO SCH (09:00)
[2020-05-16] MEDS ORDERED: Metoprolol Succinate 50 MG Tab.ER PO SCH (09:00)
[2020-05-16] MEDS ORDERED: Amiodarone 200 MG Tab PO SCH (09:00)
[2020-05-16] MEDS ORDERED: Isosorbide Mononitrate 30 MG Tab.ER PO SCH (09:00)
[2020-05-16] MEDS ORDERED: Lisinopril 5 MG Tab PO SCH (09:00)
[2020-05-16] MEDS ORDERED: Aspirin 81 MG Tab.EC PO SCH (09:00)
[2020-05-16] MEDS ORDERED: Aspirin 325 MG Tab.EC PO SCH (09:00)
[2020-05-16] MEDS ORDERED: Cholecalciferol (Vitamin D3) 25 MCG Tab PO SCH (09:00)
[2020-05-16 09:25] LABS: HEMOGLOBIN A1C 6.4 % (4.3-5.7)
--- NOTE | 2020-05-16 09:48 | PCM.DCSUM1 ---
Discharge Summary - Hospital Course Diagnosis: Stroke: No - Discharge Data Discharge Date: 05/16/20 Discharge Disposition: Home, Self-Care 01 Condition: Good - Referral to Home Health Primary Care Physician: Liudmila Alvarado PA-C - Patient Instructions Diet: Heart Healthy Diet, Diabetic Diet Activity: No Strenuous Activities, Rest and Relax Today Driving: May Drive Today Showering/Bathing: May Shower Notify Provider of: Increased Pain, Nausea and/or Vomiting - Discharge Plan *PRESCRIPTION DRUG MONITORING PROGRAM REVIEWED*: Not Applicable *COPY OF PRESCRIPTION DRUG MONITORING REPORT IN PATIENT CHANDA: Not Applicable Prescriptions/Med Rec: Metoprolol Succinate [Toprol XL 50mg] 25 mg PO DAILY #30 tab.er Home Medications: Home Meds Clopidogrel [Plavix] 75 mg PO DAILY 03/04/18 [History] atorvaSTATin Calcium [Lipitor] 40 mg PO DAILY 03/04/18 [History] Aspirin [Halfprin] 81 mg PO DAILY 03/05/18 [History] Cholecalciferol (Vitamin D3) [Vitamin D3] 1,000 unit PO DAILY 03/05/18 [History] Glucosam/Chondr/Collagn/Hyalur [Glucosamine & Chondroitin Cap] 1 cap PO DAILY 03/05/18 [History] Amiodarone [Cordarone] 200 mg PO DAILY 05/15/20 [History] Clobetasol [Clobetasol Propionate 0.05% Cream] 1 applic TOP ASDIRECTED PRN 05/15/20 [History] Halobetasol [Ultravate] 1 applic TOP ASDIRECTED PRN 05/15/20 [History] Isosorbide Mononitrate [Imdur] 60 mg PO DAILY 05/15/20 [History] Nitroglycerin [Nitrostat] 0.4 mg PO ASDIRECTED PRN 05/15/20 [History] Pantoprazole [ProTONIX] 40 mg PO DAILY 05/15/20 [History] lisinopriL [Lisinopril] 5 mg PO DAILY 05/15/20 [History] metFORMIN HCl [Metformin HCl ER] 500 mg PO DAILY 05/15/20 [History] Metoprolol Succinate [Toprol XL 50mg] 25 mg PO DAILY #30 tab.er 05/16/20 [Rx] Referrals: Charity Chang [employer] [Nurse Practitioner] - (In [place], anytime next week) - Discharge Summary/Plan Comment DC Time >30 min.: Yes Discharge Summary/Plan Comment: Final diagnosis ACS ruled out CAD suspect coronary spasm Obesity, contributory Chronic conditions: #CAD, with previous stent placement; continue isosorbide, lisinopril, continue clopidogrel and ASA -DESx2 LAD 2016 -DESx2 RCA 06/2019 -DESx1 to OM1 in 07/2019 #HLD; non-HDL chol. 84 #NSVT; continue amiodarone #DMT2; metformin, A1c 7.1% #Obesity, #Diverticular disease #GERD; continue pantoprazole History summary Nitin is a 70 year old male with known CAD and previous stent placement, is admitted into observation from the ED for rule ACS. He presented to the [facility] that afternoon of admission complaining of an hour of sharp, stabbing left-sided slightly radiating into the left shoulder type chest pain--very similar to previous pain that resulted in PCI/stent placement. Although he is on Imdur 60 mg daily with as needed nitroglycerin he stated he did not think about taking nitroglycerin although when given in the clinic he stated his pain was relieved ED course: -VS: T36.5C, pulse 48, resp 14, BP 151/87, O2 sat 96%/RA -EKG: SB, no ST change -Lab: MCV 92.6, MCH 31.4, MPV 10.5, Lymph% 17.6, mono% 11.5, anion gap 15.3, glucose 168, Ca 8.5, Trop 0.05, BNP 65, COVID negative, remainder of lab unremarkable -ASA 324mg oral given x 1 -NTG paste 1gm top applied -CXR: mild bibasilar atelectasis and/or infiltrates without clinical evidence of infection Hospital course: 05/15/2020: Patient reports resolution of chest pain and offers no concern. States he is "feeling good". Repeat troponin <0.04. Telemetry menstruated sinus bradycardia. Given sinus bradycardia with symptoms of lightheadedness with a history of lightheadedness his Toprol was decreased by 50% to 25 mg. Cardiac biomarkers negative, TSH 3.5, normal liver transaminases, BNP 65. ECG independently reviewed by myself non-ischemic ECG. Blood pressure on discharge 138/68 with a heart rate of 47. Was continued on his PPI. Given 324 mg of ASA. Medication changes/adjustments upon discharge Metoprolol succinate, 25 mg p.o. daily (from 50 mg) Rx sent through [email or web address] to [place] NTG 0.4 mg SL x3 as needed for chest pain. Rx sent through [email or web address] to [place] Decision/plan --Patient will be discharged from observation status to follow-up next week. --Any further chest pain he is to take his nitroglycerin and seek medical care --patient likely could have increase in Imdur, discuss follow-up - General Info Functional Status: Reports: Pain Controlled, Tolerating Diet, Ambulating. Denies: New Symptoms - Review of Systems General: Reports: No Symptoms HEENT: Reports: No Symptoms Pulmonary: Reports: No Symptoms Cardiovascular: Reports: Other (Periodic dizziness). Denies: Chest Pain, Palpitations Gastrointestinal: Reports: No Symptoms Genitourinary: Reports: No Symptoms Musculoskeletal: Reports: No Symptoms Skin: Reports: No Symptoms Neurological: Reports: Dizziness (periodic). Denies: Difficulty Walking, Weakness Psychiatric: Reports: No Symptoms - Patient Data Vitals - Most Recent: Last Vital Signs Temp 99.1 F 05/16/20 06:51 Pulse 47 L 05/16/20 06:51 Resp 16 05/16/20 06:51 BP 133/68 05/16/20 08:24 Pulse Ox 98 05/16/20 06:51 Weight - Most Recent: 230 lb I&O - Last 24 hours: Intake & Output 05/15/20 05/16/20 05/16/20 22:59 06:59 14:59 Intake Total 480 300 Balance 480 300 Lab Results - Last 24 hrs: Laboratory Results - last 24 hr 05/15/20 05/15/20 05/15/20 Range/Units 12:45 12:50 14:20 WBC 6.89 (5.00-10.00) 10^3/uL RBC 4.74 (4.50-6.00) 10^6/uL Hgb 14.9 (13.0-17.0) g/dL Hct 43.9 (40.0-52.0) % MCV 92.6 H (82.0-92.0) fL MCH 31.4 H (27.0-31.0) pg MCHC 33.9 (32.0-36.0) g/dL RDW 12.4 (11.5-14.5) % Plt Count 198 (150-400) 10^3/uL MPV 10.5 H (7.4-10.4) fL Immature Gran % (Auto) 0.3 (0.0-5.0) % Neut % (Auto) 67.6 (50.0-70.0) % Lymph % (Auto) 17.6 L (20.0-40.0) % [place] % (Auto) 11.5 H (2.0-8.0) % Eos % (Auto) 2.6 (1.0-3.0) % Baso % (Auto) 0.4 (0.0-1.0) % Neut # (Auto) 4.66 (2.50-7.00) 10^3/uL Lymph # (Auto) 1.21 (1.00-4.00) 10^3/uL [place] # (Auto) 0.79 (0.10-0.80) 10^3/uL Eos # (Auto) 0.18 (0.10-0.30) 10^3/uL Baso # (Auto) 0.03 (0.00-0.10) 10^3/uL Immature Gran # (Auto) 0.02 (0.00-0.50) 10^3/uL Sodium 138 (136-145) mmol/L Potassium 5.1 (3.3-5.3) mmol/L Chloride 103 (98-115) mmol/L Carbon Dioxide 24.8 (21.0-32.0) mmol/L Anion Gap 15.3 H (5-15) mmol/L BUN 14 (6-25) mg/dL Creatinine 0.96 (0.51-1.17) mg/dL Est Cr Clr Drug Dosing 76.34 mL/min Estimated GFR (MDRD) > 60 mL/min Glucose 168 H (75 - 99) mg/dL Calcium 8.5 L (8.7-10.3) mg/dL Total Bilirubin 0.8 (0.2-1.0) mg/dL AST 37 (15-37) U/L ALT 29 (12-78) U/L Alkaline Phosphatase 72 (46-116) IU/L Creatine Kinase 105 (26-276) U/L CK-MB (CK-2) 1.00 (0.00-4.30) ng/mL Troponin I 0.05 (0.00-0.070) ng/mL B-Natriuretic Peptide 65 (0-100) pg/mL Total Protein 6.4 (6.4-8.2) g/dL Albumin 3.50 (3.00-4.80) g/dL TSH, Ultra Sensitive (0.340-4.820) uIU/mL SARS CoV-2 RNA Rapid ZULEMA Negative (NEGATIVE) 05/15/20 05/15/20 05/16/20 Range/Units 14:55 21:02 07:29 WBC 5.55 (5.00-10.00) 10^3/uL RBC 5.14 (4.50-6.00) 10^6/uL Hgb 16.0 (13.0-17.0) g/dL Hct 48.0 (40.0-52.0) % MCV 93.4 H (82.0-92.0) fL MCH 31.1 H (27.0-31.0) pg MCHC 33.3 (32.0-36.0) g/dL RDW 12.5 (11.5-14.5) % Plt Count 164 (150-400) 10^3/uL MPV 9.9 (7.4-10.4) fL Immature Gran % (Auto) 0.0 (0.0-5.0) % Neut % (Auto) 63.9 (50.0-70.0) % Lymph % (Auto) 22.3 (20.0-40.0) % [place] % (Auto) 10.5 H (2.0-8.0) % Eos % (Auto) 2.9 (1.0-3.0) % Baso % (Auto) 0.4 (0.0-1.0) % Neut # (Auto) 3.55 (2.50-7.00) 10^3/uL Lymph # (Auto) 1.24 (1.00-4.00) 10^3/uL [place] # (Auto) 0.58 (0.10-0.80) 10^3/uL Eos # (Auto) 0.16 (0.10-0.30) 10^3/uL Baso # (Auto) 0.02 (0.00-0.10) 10^3/uL Immature Gran # (Auto) 0.00 (0.00-0.50) 10^3/uL Sodium (136-145) mmol/L Potassium (3.3-5.3) mmol/L Chloride (98-115) mmol/L Carbon Dioxide (21.0-32.0) mmol/L Anion Gap (5-15) mmol/L BUN (6-25) mg/dL Creatinine (0.51-1.17) mg/dL Est Cr Clr Drug Dosing mL/min Estimated GFR (MDRD) mL/min Glucose (75 - 99) mg/dL Calcium (8.7-10.3) mg/dL Total Bilirubin (0.2-1.0) mg/dL AST (15-37) U/L ALT (12-78) U/L Alkaline Phosphatase (46-116) IU/L Creatine Kinase (26-276) U/L CK-MB (CK-2) (0.00-4.30) ng/mL Troponin I < 0.04 0.04 (0.00-0.070) ng/mL B-Natriuretic Peptide (0-100) pg/mL Total Protein (6.4-8.2) g/dL Albumin (3.00-4.80) g/dL TSH, Ultra Sensitive (0.340-4.820) uIU/mL SARS CoV-2 RNA Rapid ZULEMA (NEGATIVE) 05/16/20 Range/Units 07:29 WBC (5.00-10.00) 10^3/uL RBC (4.50-6.00) 10^6/uL Hgb (13.0-17.0) g/dL Hct (40.0-52.0) % MCV (82.0-92.0) fL MCH (27.0-31.0) pg MCHC (32.0-36.0) g/dL RDW (11.5-14.5) % Plt Count (150-400) 10^3/uL MPV (7.4-10.4) fL Immature Gran % (Auto) (0.0-5.0) % Neut % (Auto) (50.0-70.0) % Lymph % (Auto) (20.0-40.0) % [place] % (Auto) (2.0-8.0) % Eos % (Auto) (1.0-3.0) % Baso % (Auto) (0.0-1.0) % Neut # (Auto) (2.50-7.00) 10^3/uL Lymph # (Auto) (1.00-4.00) 10^3/uL [place] # (Auto) (0.10-0.80) 10^3/uL Eos # (Auto) (0.10-0.30) 10^3/uL Baso # (Auto) (0.00-0.10) 10^3/uL Immature Gran # (Auto) (0.00-0.50) 10^3/uL Sodium 139 (136-145) mmol/L Potassium 4.6 (3.3-5.3) mmol/L Chloride 105 (98-115) mmol/L Carbon Dioxide 28.8 (21.0-32.0) mmol/L Anion Gap 9.8 (5-15) mmol/L BUN 14 (6-25) mg/dL Creatinine 1.07 (0.51-1.17) mg/dL Est Cr Clr Drug Dosing 68.49 mL/min Estimated GFR (MDRD) > 60 mL/min Glucose 131 H (75 - 99) mg/dL Calcium 8.9 (8.7-10.3) mg/dL Total Bilirubin (0.2-1.0) mg/dL AST (15-37) U/L ALT (12-78) U/L Alkaline Phosphatase (46-116) IU/L Creatine Kinase (26-276) U/L CK-MB (CK-2) (0.00-4.30) ng/mL Troponin I 0.04 (0.00-0.070) ng/mL B-Natriuretic Peptide (0-100) pg/mL Total Protein (6.4-8.2) g/dL Albumin (3.00-4.80) g/dL TSH, Ultra Sensitive 3.530 (0.340-4.820) uIU/mL SARS CoV-2 RNA Rapid ZULEMA (NEGATIVE) Med Orders - Current: Current Medications Amiodarone HCl (Cordarone) 200 mg PO DAILY [facility] Last Admin: 05/16/20 08:24 Dose: 200 mg Documented by: Aspirin (Halfprin) 81 mg PO DAILY [facility] Atorvastatin Calcium (Lipitor) 40 mg PO DAILY [facility] Last Admin: 05/16/20 08:24 Dose: 40 mg Documented by: Atropine Sulfate (Atropine 0.1 Mg/Ml) 0.5 - 1 mg IVPUSH ASDIRECTED PRN PRN Reason: Heart. Cholecalciferol (Vitamin D3) 25 mcg PO DAILY [facility] Last Admin: 05/16/20 08:24 Dose: 25 mcg Documented by: Clopidogrel Bisulfate (Plavix) 75 mg PO DAILY [facility] Last Admin: 05/16/20 08:24 Dose: 75 mg Documented by: Epinephrine HCl (Epinephrine 1:10,000) 1 mg IVPUSH ASDIRECTED PRN PRN Reason: Heart. Isosorbide Mononitrate (Imdur) 60 mg PO DAILY [facility] Last Admin: 05/16/20 08:24 Dose: 60 mg Documented by: Lidocaine HCl (Xylocaine 2%) 100 - 150 mg IVPUSH ASDIRECTED PRN PRN Reason: Heart. Lisinopril (Prinivil) 5 mg PO DAILY [facility] Last Admin: 05/16/20 08:24 Dose: 5 mg Documented by: Metoprolol Succinate (Toprol Xl) 25 mg PO DAILY [facility] Nitroglycerin (Nitrostat) 0.4 mg SL ASDIRECTED PRN PRN Reason: Heart. Pantoprazole Sodium (Protonix) 40 mg PO ACBREAKFAST [facility] Last Admin: 05/16/20 07:19 Dose: 40 mg Documented by: Sodium Chloride (Saline Flush) 10 ml FLUSH Q8HR PRN PRN Reason: keep vein open Discontinued Medications Aspirin (Aspirin) 324 mg PO ONETIME ONE Stop: 05/15/20 12:46 Last Admin: 05/15/20 12:52 Dose: 324 mg Documented by: Aspirin (Ecotrin) 325 mg PO DAILY [facility] Atropine Sulfate (Atropine 0.1 Mg/Ml) 0 mg IVPUSH ASDIRECTED PRN PRN Reason: Heart. Nitroglycerin (Nitro-Bid 2%) 1 gm TOP ONETIME ONE Stop: 05/15/20 12:46 Last Admin: 05/15/20 12:53 Dose: 1 gm Documented by: Nitroglycerin (Nitro-Bid 2%) 1 gm TOP Q6H [facility] Last Admin: 05/15/20 18:38 Dose: 1 gm Documented by: Nitroglycerin (Nitrostat) 0.4 mg SL ASDIRECTED PRN PRN Reason: Chest Pain Sodium Chloride (Saline Flush) 10 ml FLUSH Q8HR PRN PRN Reason: keep vein open - Exam Quality Assessment: Reports: DVT Prophylaxis General: Reports: Alert, Oriented Neck: Reports: Supple Lungs: Reports: Clear to Auscultation, Normal Respiratory Effort Cardiovascular: Reports: Regular Rate, Regular Rhythm, Bradycardia. Denies: Tachycardia, Gallops GI/Abdominal Exam: Normal Bowel Sounds, Soft Extremities: No Pedal Edema Psy/Mental Status: Reports: Alert, Normal Affect, Normal Mood
== END 2020-05-16 10:40 | disposition home or self-care (01) ==
LOC: KA.ED 12:39 → KA.MS 14:23
PROVIDERS: ADMIT Physician Assistant Medical; ATTEND Nurse Practitioner Family
DX: R07.9 Chest pain, unspecified (principal); K21.9 Gastro-esophageal reflux disease without esophagitis; E66.9 Obesity, unspecified; K57.90 Diverticulosis of intestine, part unspecified, without perforation or abscess without bleeding; I47.2 Ventricular tachycardia; I25.10 Atherosclerotic heart disease of native coronary artery without angina pectoris; E78.5 Hyperlipidemia, unspecified; Z20.828 Contact with and (suspected) exposure to other viral communicable diseases; E11.9 Type 2 diabetes mellitus without complications; Z88.1 Allergy status to other antibiotic agents; Z79.82 Long term (current) use of aspirin; Z87.891 Personal history of nicotine dependence; Z95.5 Presence of coronary angioplasty implant and graft; Z79.899 Other long term (current) drug therapy; Z68.31 Body mass index [BMI] 31.0-31.9, adult; Z79.84 Long term (current) use of oral hypoglycemic drugs
CPT/HCPCS: 36415; 71045; 80048; 80053; 82550; 82553; 83036; 83880; 84443; 84484; 85025; 87635; 93005; 99284; 99285; A9270; G0378; U0002